=== PATIENT | male | born 1930 | race Caucasian/White ===

== ENCOUNTER 2016-05-08 14:57 | Emergency (ER) | payer OTHER, MEDICARE, BC ==
[2016-05-08 15:06] VITALS: RESP 18; TEMP 97
[2016-05-08] MEDS ORDERED: LIDOCAINE HCL 1% MDV SOL SC ONE (15:40)
[2016-05-08] MEDS ORDERED: LIDOCAINE HCL 1% MPF SOL ONE (15:41)
[2016-05-08 18:02] VITALS: BP 158/86; PULSE 96; O2SAT 96
== END 2016-05-08 16:32 | disposition home or self-care (01) | DRG 605 ==
LOC: ED 14:57
DX: S51.012A Laceration without foreign body of left elbow, initial encounter (principal); W23.0XXA Caught, crushed, jammed, or pinched between moving objects, initial encounter
CPT/HCPCS: 12001; 73030; 99284; J2001